=== PATIENT | female | born 1940 | race Two or more races ===

== ENCOUNTER 2019-04-21 11:36 | Inpatient (IN) | payer OTHER ==
[~2019-04-21] VITALS: Ht 157.5 cm; Wt 45.4 kg
[2019-04-21] MEDS ORDERED: RISPERDAL2 MG (12:06)
[2019-04-24] MEDS ORDERED: DUI500 PO (09:03)
[2019-04-24] MEDS ORDERED: PERCOCET 5-3251 EACH PO (09:03)
[2019-04-24] MEDS ORDERED: ELIQUIS2.5 MG PO (09:03)
== END 2019-04-24 16:31 | DRG 470 ==
LOC: ER 11:36 → SURH 18:16
PROVIDERS: ADMIT Orthopaedic Surgery
PROC: B246ZZZ Ultrasonography of Right and Left Heart (ICD-10-PCS; 2019-04-21)
PROC: 4A033R1 Measurement of Arterial Saturation, Peripheral, Percutaneous Approach (ICD-10-PCS; 2019-04-21)
PROC: 0MBL0ZZ Excision of Right Hip Bursa and Ligament, Open Approach (ICD-10-PCS; 2019-04-22)
PROC: 0QS604Z Reposition Right Upper Femur with Internal Fixation Device, Open Approach (ICD-10-PCS; 2019-04-22)
PROC: 0SUA0BZ Supplement Right Hip Joint, Acetabular Surface with Resurfacing Device, Open Approach (ICD-10-PCS; principal; 2019-04-22 15:00)
DX: S72.041A Displaced fracture of base of neck of right femur, initial encounter for closed fracture (principal); N39.0 Urinary tract infection, site not specified; I08.1 Rheumatic disorders of both mitral and tricuspid valves; G30.0 Alzheimer's disease with early onset; F02.80 Dementia in other diseases classified elsewhere, unspecified severity, without behavioral disturbance, psychotic disturbance, mood disturbance, and anxiety; M16.11 Unilateral primary osteoarthritis, right hip; M81.0 Age-related osteoporosis without current pathological fracture; S72.091A Other fracture of head and neck of right femur, initial encounter for closed fracture; M70.61 Trochanteric bursitis, right hip; R31.0 Gross hematuria